=== PATIENT | female | born 1990 | race Caucasian/White ===

== ENCOUNTER 2023-12-28 20:36 | Emergency (ER) | payer OTHER, SELFPAY ==
[2023-12-28 20:54] VITALS: BP 127/60; PULSE 91; RESP 16; TEMP 36.4; O2SAT 97; BMI 35.5
--- NOTE | 2023-12-29 01:53 | ED.HA ---
HPI - Headache General Chief Complaint: Headache Stated Complaint: post sinus surg/headaches/pressure Mode of arrival: Ambulatory History of Present Illness HPI Narrative: Patient left without seeing provider Related Data Allergies Allergy/AdvReac Type Severity Reaction Status Date / Time Latex, Natural Rubber AdvReac Mild Rash Verified 12/28/23 21:02 Patient History Social History Smoking Status: Never smoker Smoking Status: Never smoker alcohol intake frequency: holidays/special occasions only Substance Use Type: does not use Exam Initial Vital Signs Initial Vital Signs: Vital Signs Temperature 97.6 F 12/28/23 20:54 Pulse Rate 91 H 12/28/23 20:54 Respiratory Rate 16 12/28/23 20:54 Blood Pressure 127/60 12/28/23 20:54 Pulse Oximetry 97 12/28/23 20:54 Oxygen Delivery Method Room Air 12/28/23 20:54 Course Vital Signs Vital signs: Vital Signs - 8 hr 12/28/23 20:54 Temperature 97.6 F Pulse Rate 91 H Respiratory Rate 16 Blood Pressure 127/60 Pulse Oximetry 97 Oxygen Delivery Method Room Air Discharge Plan Departure Patient Disposition: Left Without Being Seen Clinical Impression: Patient left after triage
== END 2023-12-28 22:52 | disposition left against medical advice (07) ==
PROVIDERS: Emergency Provider Emergency Medicine
CPT/HCPCS: 99281

== ENCOUNTER 2023-12-29 14:19 | Emergency (ER) | payer OTHER, SELFPAY ==
[2023-12-29 14:35] VITALS: BP 146/71; PULSE 79; RESP 18; TEMP 37; O2SAT 97; BMI 37.1
--- NOTE | 2023-12-29 16:27 | PC.NURSE ---
reports sinus surgery to remove polyps in September. states she still has sinus pressure and pain. no discharge.
== END 2023-12-29 18:21 | disposition left against medical advice (07) ==
PROVIDERS: Emergency Provider Student in an Organized Health Care Education/Training Program
DX: R51.9 Headache, unspecified (principal)
CPT/HCPCS: 99281

== ENCOUNTER 2023-12-31 17:38 | Emergency (ER) | payer OTHER, SELFPAY ==
[2023-12-31 17:42] VITALS: BP 134/79; PULSE 89; RESP 16; TEMP 36.8; O2SAT 97; BMI 37.1
--- NOTE | 2023-12-31 19:29 | DI.CT.S_ITS ---
PROCEDURE: CT HEAD/BRAIN WO CON INDICATIONS: headache TECHNIQUE: Noncontrast 4.5 mm thick angled axial sections acquired from the foramen magnum to the vertex, with coronal and sagittal reformats. For radiation dose reduction, the following was used: automated exposure control, adjustment of mA and/or kV according to patient size. COMPARISON: None. FINDINGS: Image quality: Diagnostic. CSF spaces: Basal cisterns are patent. No extra-axial fluid collections. Ventricles are normal in size and shape. Brain: No midline shift. Benign-appearing calcifications are seen in bilateral basal ganglia. No intracranial masses or hemorrhage. Mooney-white matter interface is normal. Skull and face: Calvarium and visualized facial bones are intact, without suspicious lesions. Sinuses: Visualized sinuses and mastoids are clear. IMPRESSION: No acute intracranial pathology.. Bilateral paranasal sinuses are fairly well aerated. Dictated by: Zev Verma M.D. on 12/31/2023 at 19:54 Approved by: Zev Verma M.D. on 12/31/2023 at 19:55
--- NOTE | 2023-12-31 19:31 | ED.HA ---
HPI - Headache General Chief Complaint: Headache Stated Complaint: post sinus surg/sinus pain/headaches Time Seen by Provider: 12/31/23 19:22 Mode of arrival: Ambulatory History of Present Illness HPI Narrative: 33-year-old female reports history of nasal sinus polyp surgery removal September 2023 in her home town [facility], visiting the [facility], now with 2-3 weeks duration of increasing sinus pain and pressure, with headache in her frontal sinus, also some in the back of her head. Some photophobia. No neck pain. Moves neck well. No weakness to face arm or leg. No numbness to face arm or leg. She is tried [id number] medications. She has some nausea without emesis. She denies UTI symptoms. Denies cough fever shortness of breath. Related Data Previous Rx's Medication Instructions Recorded amoxicillin 875 mg-potassium 1 tab PO BID 10 days #20 tabs 12/31/23 clavulanate 125 mg tablet Allergies Allergy/AdvReac Type Severity Reaction Status Date / Time Latex, Natural Rubber AdvReac Mild Rash Verified 12/28/23 21:02 Review of Systems Review of Systems Narrative: per HPI Patient History Social History Smoking Status: Never smoker Smoking Status: Never smoker alcohol intake frequency: holidays/special occasions only Substance Use Type: does not use Exam Narrative Exam Narrative: GENERAL: Well-developed patient, in mild distress. HEAD: Atraumatic. Normocephalic. EYES: Pupils equal round and reactive. Extraocular motions intact. No scleral icterus. No injection or drainage. ENT: Nose without bleeding, purulent drainage. Throat without erythema, tonsillar hypertrophy or exudate. Airway patent. NECK: Trachea midline. Non tender CARDIOVASCULAR: Regular rate and rhythm without murmurs, gallops, or rubs. RESPIRATORY: Clear to auscultation. Breath sounds equal bilaterally. No wheezes, rales, or rhonchi. GASTROINTESTINAL: Abdomen soft, non-tender, nondistended. EXTREMITIES: No edema or joint tenderness. BACK: Nontender without deformity or crepitance. No flank tenderness. NEURO: AOx3. SKIN: No rash or erythema of visible areas Initial Vital Signs Initial Vital Signs: Vital Signs Temperature 98.2 F 12/31/23 17:42 Pulse Rate 89 12/31/23 17:42 Respiratory Rate 16 12/31/23 17:42 Blood Pressure 134/79 12/31/23 17:42 Pulse Oximetry 97 12/31/23 17:42 Oxygen Delivery Method Room Air 12/31/23 17:42 Course Orders Ordered: ED Orders 12/31/23 19:29 CT head/brain wo con Stat Discontinued Medications Amoxicillin/Clavulanate Potassium (Amoxicillin/Clav 875/125 Mg) 1 tab PO NOW ONE Stop: 12/31/23 20:43 Last Admin: 12/31/23 20:49 Dose: 1 tab Documented By: FABI Ibuprofen (Ibuprofen 400 Mg Tablet) 800 mg PO NOW ONE Stop: 12/31/23 19:31 Last Admin: 12/31/23 19:43 Dose: 800 mg Documented By: FABI Vital Signs Vital signs: Vital Signs - 8 hr 12/31/23 19:56 Temperature 97.7 F Pulse Rate 71 Respiratory Rate 16 Blood Pressure 131/75 Pulse Oximetry 96 Oxygen Delivery Method Room Air MDM - Headache Imaging Data CT scan - head: Radiologist's Impression: [address] [address] [address] Scan Report Signed Patient: Ivette Garrido MR#: [id number] : 1990 Acct:[id number] Age/Sex: 33 / F Date of Service: 12/31/23 Loc: ED Accession Number: [id number] Procedure: CT head/brain wo con Ordering Provider: Gabriel Gallagher MD PROCEDURE: CT HEAD/BRAIN WO CON INDICATIONS: headache TECHNIQUE: Noncontrast 4.5 mm thick angled axial sections acquired from the foramen magnum to the vertex, with coronal and sagittal reformats. For radiation dose reduction, the following was used: automated exposure control, adjustment of mA and/or kV according to patient size. COMPARISON: None. FINDINGS: Image quality: Diagnostic. CSF spaces: Basal cisterns are patent. No extra-axial fluid collections. Ventricles are normal in size and shape. Brain: No midline shift. Benign-appearing calcifications are seen in bilateral basal ganglia. No intracranial masses or hemorrhage. Mooney-white matter interface is normal. Skull and face: Calvarium and visualized facial bones are intact, without suspicious lesions. Sinuses: Visualized sinuses and mastoids are clear. IMPRESSION: No acute intracranial pathology.. Bilateral paranasal sinuses are fairly well aerated. Dictated by: Zev Verma M.D. on 12/31/2023 at 19:54 Approved by: Zev Verma M.D. on 12/31/2023 at 19:55 [facility] Narrative Medical decision making narrative: 33-year-old female with 2-3 weeks duration increasing sinus pain, did have sinus polyp surgery in [facility] area September 2023, with some postnasal drip and increasing sinus pain recent weeks, increasing pain last few days. She has pain to her frontal sinus as well as maxillary area discomfort, some posterior neck discomfort. Moves neck well. We discussed headache medications, she drove with her daughter, does not want sedating medication, we talked about IM IV Toradol, she does not want injections. P.o. Motrin. She would like imaging of her head, CT head noncontrast study ordered. CT head no acute changes. We discussed lack of sinus changes on CT, however she feels that she has typical symptoms of sinus infection, now for 2 or 3 weeks, we will give course of Augmentin antibiotic. We discussed other workup for headache which include CT with IV contrast, also lumbar puncture, she declines any further workup for now. Advised patient be rechecked in 2 or 3 days or not improving. PO Augmentin first dose in ED, prescription for further antibiotics sent to her pharmacy. 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 Return precautions discussed. Discharge Plan Departure Patient Disposition: Home Clinical Impression: Headache, Sinusitis Instructions: DI for Sinus Headache, DI for Headache Activity Restrictions/Additional Instructions: Persisting sinus headache, history of nasal polyp surgery September 2023, recent course antibiotic amoxicillin. Symptoms increasing over the last 2-3 weeks, especially last few days. Imaging requested. CT head study showed no acute changes. Clinically suspect there could be sinusitis. Course of Augmentin antibiotic, 1st dose in the emergency department, prescription sent to your pharmacy. Consider recheck with local otolaryngology ear nose throat specialist Dr. Romero, as [place]. If you are not improving in the next few days. Return to the emergency department earlier for any change worsening symptoms or any concerns prior Prescriptions: New amoxicillin-pot clavulanate 875-125 mg tablet 1 tab PO BID 10 Days Qty: 20 0RF Referrals: Hubert Romero MD [Physician] - Stand Alone Forms: Patient Portal/API
[2023-12-31] MEDS: IBUPROFEN 400 MG TABLET 800 MG PO (19:43)
[2023-12-31 19:56] VITALS: BP 131/75; PULSE 71; RESP 16; TEMP 36.5; O2SAT 96
[2023-12-31] MEDS: AMOXICILLIN/CLAV 875/125 MG 1 TAB PO (20:49)
== END 2023-12-31 20:55 | disposition home or self-care (01) ==
PROVIDERS: Emergency Provider Emergency Medicine
DX: R51.9 Headache, unspecified (principal); J32.9 Chronic sinusitis, unspecified
CPT/HCPCS: 70450; 99284